=== PATIENT | female | born 1970 | race Caucasian/White ===

== ENCOUNTER → 2016-07-20 12:48 | Outpatient (CLI) | payer BC | END | disposition home or self-care (01) | LOC: D.US 12:48 → D.NM 14:00 | DX: R10.9 Unspecified abdominal pain (principal); R11.0 Nausea ==

== ENCOUNTER 2016-10-23 07:13 | Day surgery (SDC) | payer BC ==
[~2016-10-23] VITALS: Ht 170.2 cm; Wt 68.0 kg
--- NOTE | ~2016-10-23 | HP ---
PATIENT: HAYLEE WILLIAM MEDICAL RECORD: [id number] ACCOUNT: [id number] LOCATION:[facility] : 66 ADMISSION DATE: 10/23/16 HISTORY AND PHYSICAL EXAMINATION CHIEF COMPLAINT: Pain. HISTORY OF PRESENT ILLNESS: The patient has been having right upper quadrant pain, which radiates around to the back. Also, some right lower quadrant pain. Due to right lower quadrant pain, I think a laparoscopic appendectomy is indicated. The patient underwent a PIPIDA scan. Her ejection fraction was in the low normal range; however, she did have exact reproduction of symptoms with injection of CCK. She has had some bloating as well as nausea with food ingestion. The risks, possible complications and alternatives to laparoscopic cholecystectomy, intraoperative cholangiogram, and possible liver biopsy and laparoscopic appendectomy were explained to the patient. She elects to proceed. SOCIAL HISTORY: Nonsmoker. PAST MEDICAL AND SURGICAL HISTORY: Hypertension. ALLERGIES: SULFA. HOME MEDICATIONS: Coreg as well as Lyrica. REVIEW OF SYSTEMS: Negative for CVA or seizures. Negative for diabetes or thyroid problems. Negative for renal disease or hepatitis. Review of systems is negative other than as is described above. PHYSICAL EXAMINATION: GENERAL: The patient does not appear acutely ill. She does not appear chronically ill. VITAL SIGNS: Reviewed. HEAD: External ears appear normal. EYES: Extraocular movements are intact. NECK: Trachea is midline. CHEST: No intercostal retractions. PULMONARY: Nonlabored, no stridor. ABDOMEN: No peritonitis with movement. EXTREMITIES: No peripheral cyanosis. IMPRESSION: 1. Right upper quadrant pain due to biliary dyskinesia. 2. Right lower quadrant pain, perhaps due to appendicitis. PLAN: As described above. I will remove the appendix even if it is normal in order to avoid diagnostic confusion in the future should the patient have a recurrence or persistence of abdominal pain. TRANSINT:[id number] Voice Confirmation ID: [id number] DOCUMENT ID: [id number] HISTORY AND PHYSICAL [id number] HAYLEE WILLIAM ROBERT MD CC: DANN BUCK DO and ALIE MEADE M.D. 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
--- NOTE | ~2016-10-23 | OP ---
PATIENT NAME: HAYLEE WILLIAM MEDICAL RECORD: [id number] :66 LOCATION:D.OPS ADMISSION DATE: SURGEON: ROBER HAMILTON MD DATE OF OPERATION: 10/23/2016 PREOPERATIVE DIAGNOSES: 1. Biliary dyskinesia. 2. Right upper quadrant pain. 3. Right lower quadrant pain. POSTOPERATIVE DIAGNOSIS: 1. Biliary dyskinesia. 2. Right upper quadrant pain 3. Right lower quadrant pain. 4. Adhesions to the appendix. 5. Pelvic adhesions. 6. Hepatomegaly. PROCEDURE: 1. Laparoscopic cholecystectomy. 2. Intraoperative cholangiography without immediate surgeon interpretation. 3. An 18-gauge core needle liver biopsy. 4. Laparoscopic appendectomy. SURGEON: Rober Hamilton MD SOCK EXAMINER: None. BLOOD LOSS: Minimal. ANESTHESIA: General. COMPLICATIONS: None. The indication for the appendectomy was right lower quadrant pain, which the patient has had. This may be due to pelvic adhesions ____ inflammatory process involving the appendix. During this operation, there were adhesions to the appendix as well as pelvic adhesions from the patient's gynecologic surgery. These adhesions were lysed. The appendix was removed in order to avoid diagnostic confusion in the future should the patient have a persistence or recurrence of abdominal pain or pelvic pain. OPERATIVE COURSE: The patient was conveyed to the operating room electively on 10/23/2016. General anesthesia was induced by anesthesia staff. The abdomen was sterilely prepped and draped. An incision was accomplished within the umbilicus. Sharp dissection was carried down through skin and subcutaneous tissue to the umbilical fascia. The area around the umbilicus was sharply cleaned of overlying connective tissue. Stay sutures of 0 Vicryl were placed on the side of a tiny umbilical hernia defect. Hernia defect was widened. A 12-mm trocar was inserted. CO2 insufflation was begun. Once a sufficient pneumoperitoneum had been achieved, a 2 mm trocar was inserted in the right groin. A 2-mm trocars were inserted in the right upper quadrant. A 5-mm trocar was inserted in the epigastrium. During insertion of the trocars, there was no apparent injury to the bowels, any intraperitoneal or retroperitoneal structures. OPERATIVE REPORT [id number] HAYLEE WILLIAM The indication for the liver biopsy was hepatomegaly. Under laparoscopic guidance, I percutaneously accessed the right upper quadrant utilizing an 18-gauge core needle liver biopsy device. Cores were obtained over the convexity of the liver. The biopsy sites were made hemostatic with the electrocautery. The fundus of the gallbladder was grasped and retracted anteriorly. I advanced a cholangiogram trocar. I punctured the fundus of the gallbladder. I aspirated bile. I then injected dye. A real time cholangiogram was performed. The cholangiographic images were sent to the radiologist for interpretation. I then aspirated and removed the cholangiogram catheter. I then bluntly dissected in the triangle of Calot. One cystic artery and 1 cystic duct were identified. These were clipped multiply and divided between clips. The gallbladder was excised from its bed and the liver. It was placed within an Endobag retrieval device and was withdrawn through the umbilical fascia defect. I irrigated and aspirated the right upper quadrant. There was no bleeding even at low pressure of 8. The patient was then positioned in Trendelenburg position and tilted to the left. The pelvic adhesions were noted and these were taken down with the EnSeal device. Some adhesions from the pelvis in the right lower quadrant sidewall to the appendix were taken down with the EnSeal device. A window was created in the mesoappendix. I stapled across the tip of the cecum with an Endo-ANUSHKA type stapler utilizing a blue load. I then took down the mesoappendix utilizing the EnSeal device. The appendix was placed within an Endobag retrieval device and was withdrawn through the umbilical fascia defect. The 12-mm trocar was placed and the abdomen reinsufflated. I irrigated and aspirated in the pelvis. There was no bleeding. All trocars were removed and the abdomen desufflated. The area around the incisions were infiltrated with a local anesthetic. The fascia at the umbilicus was closed with a horizontal mattress 0 Vicryl suture. The skin at the umbilicus was closed with interrupted 4-0 Vicryl Rapide sutures. The 5-mm trocar site was closed with a single 4-0 Vicryl suture. Band-Aids were used over the 2-mm trocar sites. The patient then extubated and conveyed to post-anesthesia care unit where she was in stable condition. She will be dismissed home on [place] for pain. I will see her in the office in 2-3 weeks. TRANSINT:[id number] Voice Confirmation ID: [id number] DOCUMENT ID: [id number] OPERATIVE REPORT [id number] HAYLEE WILLIAM ROBERT MD CC: DANN BUCK DO and ALIE MEADE M.D. [phone] DICTATION DATE: 10/23/16 1439 PIANO STRINGER: 10/23/161957 [facility] 10/23/16 [place] [id number] [place] [id number]
[~2016-10-23 07:13] MED LIST: COREG25 MG PO; LYRICA100 MG PO; MACRODANTIN100 MG PO; VITAMIN B-12100 MCG; VITAMIN C WIT1000 MG
[2016-10-23 08:37] VITALS: BP 113/69; Ht 170.2 cm; Wt 68.0 kg
[2016-10-23 09:35] LABS: HEMATOCRIT 42.9 % (36.0-48.0); HEMOGLOBIN 14.6 g/dL (12-16); MCH 33.3 pg (26.0-34.0); MCV 97.7 fL (80.0-100.0); MEAN PLATELET VOLUME 9.3 fL (7.4-10.4); RBC 4.39 10x6/uL (4.00-5.40); RDW 12.5 % (11.5-14.5); WBC 5.3 10x3/uL (4.8-10.8)
--- NOTE | 2016-10-23 13:45 | NUR ---
PT SUPINE WITH HOB ELEVATED, EYES CLOSED. RESPONDS TO VERBAL STIMULI. VSS. FAMILY AT BEDSIDE. NO C/O N/V/PAIN AT THIS TIME. WILL MONITOR.
--- NOTE | 2016-10-23 14:55 | NUR ---
ICE CHIPS TOLERATED 1430- LEMON/KOI SODA TOLERATED 1445- IV D/C'D, PT TOLERATED. CATHETER INTACT 1450- DISCHARGE INSTRUCTIONS COMPLETED, PT VERBALIZED UNDERSTANDING. PAPERWORK SIGNED. 1455- PT OOB TO BR, VOIDED WITHOUT DIFFICULTY. DRESSING FOR DISCHARGE.
== END 2016-10-23 15:00 | disposition home or self-care (01) ==
LOC: D.OPS 07:13 → D.PAN 09:15 → D.OPS 09:30 → D.PAN 09:30 → D.OPS 15:00
PROVIDERS: Anesthesiology
DX: K82.8 Other specified diseases of gallbladder (principal); R10.31 Right lower quadrant pain; I10 Essential (primary) hypertension

== ENCOUNTER 2016-11-19 16:21 | Emergency (ER) | payer BC ==
[2016-10-23 08:37] VITALS: BMI 23.5
== END 2016-11-19 16:30 | disposition left against medical advice (07) ==
LOC: D.ER 16:21
DX: R51 Headache (principal)